=== PATIENT | female | born 1985 | race Caucasian/White ===

== ENCOUNTER 2016-06-23 20:41 | Emergency (ER) | payer OTHER ==
[~2016-06-23] VITALS: Ht 154.9 cm; Wt 70.4 kg
[2016-06-23 21:27] VITALS: Ht 154.9 cm; Wt 70.4 kg
[2016-06-24] MEDS ORDERED: ONDANSETRON (ODT) 4 MG TAB ODT STA (00:23)
[2016-06-24] MEDS ORDERED: FAMOTIDINE 20 MG TAB PO ONE (00:30)
[2016-06-24] MEDS ORDERED: HYDROCODONE/APAP (5/325) TAB PO ONE (00:30)
--- NOTE | 2016-06-24 00:35 | ERD ---
ER Documentation Chief Complaint Date/Time DATE: 06/24/16 TIME: 00:33 Chief Complaint C/O MID AP RADIATING TO RIGHT QUADRANT X1 DAY +VOMITING HPI This a 30-year-old female who presents to the emergency department today complaining of abdominal pain for the past day. Patient states the pain is worse with food. States she vomited one time. Denies any fevers or chills, dysuria. ROS All systems reviewed and are negative except as per history of present illness. Medications Home Meds Active Scripts Famotidine* (Pepcid*) 20 Mg Tablet, 20 MG PO BID for 10 Days, TAB Prov:RICARDO MICHELLE PA-C 06/24/16 Hydrocodone/Acetaminophen ([place] 5-325 Tablet) 1 Each Tablet, 1 TAB PO Q6H Y for PAIN, #12 TAB Prov:RICARDO MICHELLE PA-C 06/24/16 Ondansetron Hcl* (Zofran*) 4 Mg Tablet, 4 MG PO Q6H for NAUSEA AND/OR VOMITING, #30 TAB Prov:RICARDO MICHELLE PA-C 06/24/16 Allergies Allergies: Coded Allergies: No Known Allergy (Unverified , 06/23/16) PMhx/Soc Medical and Surgical Hx: pt denies Medical Hx, pt denies Surgical Hx Hx Alcohol Use: No Hx Substance Use: No Hx Tobacco Use: No Smoking Status: Never smoker Physical Exam Vitals Vital Signs Date Time Temp Pulse Resp B/P Pulse Ox O2 Delivery O2 Flow Rate FiO2 06/23/16 21:27 98.2 76 20 123/80 100 Physical Exam Const: No acute distress Head: Atraumatic Eyes: Normal Conjunctiva ENT: Normal External Ears, Nose and Mouth. Neck: Full range of motion..~ No meningismus. Resp: Clear to auscultation bilaterally Cardio: Regular rate and rhythm, no murmurs Abd: Soft, epigastric and right upper quadrant tenderness non distended. Normal bowel sounds no right lower quadrant pain. No tenderness of Skin: No petechiae or rashes Back: No midline or flank tenderness Ext: No cyanosis, or edema Neur: Awake and alert Psych: Normal Mood and Affect Result Diagram: 06/24/16 0110 06/24/16 0110 Results 24 hrs Laboratory Tests Test 06/24/16 00:38 06/24/16 01:10 Urine Color LT. YELLOW Urine Clarity CLEAR Urine pH 6.0 Urine Specific [place] 1.020 Urine Ketones NEGATIVE Urine Nitrite NEGATIVE Urine Bilirubin NEGATIVE Urine Urobilinogen 0.2 E.U./dL Urine Leukocyte Esterase TRACE Urine Microscopic RBC 2-5/HPF Urine Microscopic WBC 5-10/HPF Urine Squamous Epithelial Cells FEW Urine Bacteria OCCASIONAL Urine Hemoglobin 1+ Urine Glucose NEGATIVE% Urine Total Protein NEGATIVE White Blood Count 8.110^3/ul Red Blood Count 4.5510^6/ul Hemoglobin 12.5g/dl Hematocrit 38.9% Mean Corpuscular Volume 85.5fl Mean Corpuscular Hemoglobin 27.5pg Mean Corpuscular Hemoglobin Concent 32.1g/dl Red Cell Distribution Width 13.2% Platelet Count 66307^3/UL Mean Platelet Volume 10.3fl Neutrophils % 57.7% Lymphocytes % 33.5% Monocytes % 6.5% Eosinophils % 1.6% Basophils % 0.5% Nucleated Red Blood Cells % 0.0/100WBC Neutrophils # 4.610^3/ul Lymphocytes # 2.710^3/ul Monocytes # 0.510^3/ul Eosinophils # 0.110^3/ul Basophils # 0.010^3/ul Nucleated Red Blood Cells # 0.010^3/ul Sodium Level 137mmol/L Potassium Level 4.3mmol/L Chloride Level 103mmol/L Carbon Dioxide Level 27mmol/L Anion Gap 11 Blood Urea Nitrogen 9mg/dl Creatinine 0.64mg/dl Glucose Level 93mg/dl Calcium Level 9.6mg/dl Total Bilirubin 0.3mg/dl Direct Bilirubin 0.00mg/dl Indirect Bilirubin 0.3mg/dl Aspartate Amino Transf (AST/SGOT) 31IU/L Alanine Aminotransferase (ALT/SGPT) 49IU/L Alkaline Phosphatase 106IU/L Total Protein 8.0g/dl Albumin 4.5g/dl Globulin 3.50g/dl Albumin/Globulin Ratio 1.28 Lipase 88U/L Current Medications Medications (Trade) Dose Ordered Sig/Micah Route PRN Reason Start Time Stop Time Status Last Admin Dose Admin Acetaminophen/ Hydrocodone Bitart ([place] (5/325)) 1 tab ONCE ONCE PO 06/24/16 00:30 06/24/16 00:31 DC 06/24/16 00:59 Famotidine (Pepcid) 20 mg ONCE ONCE PO 06/24/16 00:30 06/24/16 00:31 DC 06/24/16 00:58 Ondansetron HCl (Zofran Odt) 4 mg ONCE STAT ODT 06/24/16 00:23 06/24/16 00:25 DC 06/24/16 00:58 DIAGNOSTIC IMAGING REPORT Patient: CONNIE STEVENS : 1985 Age: 30 Sex: F MR #: [id number] DOS: 06/24/16 0023 Ordering MD: RICARDO MICHELLE PA-C Location: [facility] Room/Bed: PROCEDURE: Right upper quadrant ultrasound. CLINICAL INDICATION: Abdominal pain. TECHNIQUE: Multiple real-time longitudinal and transverse images of the right upper quadrant of the abdomen were acquired utilizing a curved array transducer. Images were reviewed on a high-resolution PACS workstation. COMPARISON: None. FINDINGS: The pancreas is obscured by bowel gas. The liver is normal in echogenicity. The liver measures 17.2 cm in length. No hepatic lesion or intrahepatic biliary ductal dilatation is seen. The portal vein is patent with hepatopetal flow. Multiple gallstones are seen within the gallbladder lumen. The gallbladder wall is not thickened. There is no pericholecystic fluid. The common bile duct measures 4 mm in diameter, not dilated. The right kidney measures 11.0 cm in length. Renal echogenicity is normal. There is no hydronephrosis, urinary calculus, or renal mass. The visualized portions of the aorta and IVC are unremarkable. IMPRESSION: 1. Cholelithiasis without evidence of cholecystitis. 2. Nonvisualization of the pancreas. RPTAT: HTAR .Aleksey Vera MD, Date Time Electronically viewed and signed by .Aleksey Vera MD, on 06/24/2016 01:51 .R/ CC: RICARDO MICHELLE PA-C Procedures/[facility] This a 30-year-old female who presents the emergency department today complaining of abdominal pain for the past day. On physical exam patient has epigastric and right upper quadrant tenderness. Patient had indicated the pain was worse with food. I did obtain laboratory work as well as a UA and right upper quadrant ultrasound Laboratory work shows no elevated white blood cell count. She is not anemic. Platelets are within normal limits. Electrolytes are within normal limits. Glucose within normal limits. Liver function is within normal limits. Lipase is normal limits per UA shows trace leukocyte esterase. Patient denies any dysuria. Urine test is negative. Right upper quadrant ultrasound shows cholelithiasis without evidence of cholecystitis. There are multiple gallstones seen within the gallbladder lumen. The gallbladder wall is not thickening. There is no pericholecystic fluid. The common bile duct is not dilated. Patient's abdominal pain at this time is consistent with biliary colic and gallstones. Low suspicion for acute surgical abdomen or acute pancreatitis. Patient was given [place], Zofran and Pepcid here in the emergency department and pain improved. She was given a prescription for [place], Pepcid and Zofran for home At this time the patient is stable for discharge and outpatient management. Patient should follow up with their PCP in the next 1-2 days. They may return to the emergency department sooner for any persistent or worsening of symptoms. Patient understood and agreed with the plan. Departure Diagnosis: Primary Impression: Gallstones Condition: RICARDO Richard PA-C June 24, 2016 00:35
[2016-06-24 01:08] LABS: ADD UMIC YES; URINE BILIRUBIN (Dip) NEGATIVE (NEGATIVE); URINE BLOOD (Dip) 1+ (NEGATIVE); URINE COLOR LT. YELLOW (YELLOW); URINE GLUCOSE (Dip) NEGATIVE (NEGATIVE); URINE KETONES (Dip) NEGATIVE (NEGATIVE); URINE LEUKOCYTE ESTERASE (Dip) TRACE (NEGATIVE); URINE NITRITE (Dip) NEGATIVE (NEGATIVE); URINE TOTAL PROTEIN (Dip) NEGATIVE (NEGATIVE); URINE UROBILINOGEN (Dip) 0.2 E.U./dL (0.1-1.0)
[2016-06-24 01:20] LABS: BACTERIA,URINE OCCASIONAL; SQUAMOUS EPITHELIAL CELL,UR FEW
[2016-06-24 01:49] LABS: ADD SCAN DIFF NO
[2016-06-24 01:51] LABS: BASOPHILS % 0.5 % (0.0-2.0); EOSINOPHILS # 0.1 10^3/ul (0.0-0.5); EOSINOPHILS % 1.6 % (0.0-7.0); HEMATOCRIT 38.9 % (37.0-47.0); HEMOGLOBIN 12.5 g/dl (12.0-16.0); LYMPHOCYTES # 2.7 10^3/ul (0.8-2.9); LYMPHOCYTES % 33.5 % (15.0-51.0); MEAN CORPUSCULAR HEMOGLOBIN 27.5 pg (29.0-33.0); MEAN CORPUSCULAR HGB CONC 32.1 g/dl (32.0-37.0); MEAN CORPUSCULAR VOLUME 85.5 fl (82.0-101.0); MEAN PLATELET VOLUME 10.3 fl (7.4-10.4); MONOCYTE # 0.5 10^3/ul (0.3-0.9); MONOCYTES % 6.5 % (0.0-11.0); NEUTROPHIL # 4.6 10^3/ul (1.6-7.5); NEUTROPHILS % 57.7 % (39.0-77.0); PLATELET COUNT 319 10^3/UL (140-415); RED BLOOD COUNT 4.55 10^6/ul (4.20-5.40); RED CELL DISTRIBUTION WIDTH 13.2 % (11.5-14.5); WHITE BLOOD COUNT 8.1 10^3/ul (4.8-10.8)
--- NOTE | 2016-06-24 01:51 | RADRPT ---
PROCEDURE: Right upper quadrant ultrasound. CLINICAL INDICATION: Abdominal pain. TECHNIQUE: Multiple real-time longitudinal and transverse images of the right upper quadrant of th e abdomen were acquired utilizing a curved array transducer. Images were reviewed on a high-resoluti on PACS workstation. COMPARISON: None. FINDINGS: The pancreas is obscured by bowel gas. The liver is normal in echogenicity. The liver measures 17.2 cm in length. No hepatic lesion or in trahepatic biliary ductal dilatation is seen. The portal vein is patent with hepatopetal flow. Multiple gallstones are seen within the gallbladder lumen. The gallbladder wall is not thickened. There is no pericholecystic fluid. The common bile duct measures 4 mm in diameter, not dilated. The right kidney measures 11.0 cm in length. Renal echogenicity is normal. There is no hydronephro sis, urinary calculus, or renal mass. The visualized portions of the aorta and IVC are unremarkable. IMPRESSION: 1. Cholelithiasis without evidence of cholecystitis. 2. Nonvisualization of the pancreas. RPTAT: HTAR .Aleksey Vera MD, Date Time Electronically viewed and signed by .Aleksey Vera MD, on 06/24/2016 01:51 .R/
[2016-06-24 02:10] LABS: ALBUMIN 4.5 g/dl (3.3-4.9); ALBUMIN/GLOBULIN RATIO 1.28; BILIRUBIN,INDIRECT 0.3 mg/dl (0-1.1); BILIRUBIN,TOTAL 0.3 mg/dl (0.2-1.3); CALCIUM 9.6 mg/dl (8.4-10.2); CREATININE 0.64 mg/dl (0.44-1.00); POTASSIUM 4.3 mmol/L (3.5-5.1)
[2016-06-24] MEDS ORDERED: HYDR-906 PO (02:19)
[2016-06-24] MEDS ORDERED: ONDA4TAB8 PO (02:19)
[2016-06-24] MEDS ORDERED: FAMO-18 PO (02:19)
[2016-06-24 02:36] VITALS: BP 113/74; PULSE 62; RESP 16
== END 2016-06-24 02:39 | disposition home or self-care (01) ==
LOC: FTE 20:41
DX: K80.20 Calculus of gallbladder without cholecystitis without obstruction (principal); R11.10 Vomiting, unspecified
CPT/HCPCS: 76705; 80053; 81001; 83690; 85025; Z7610; 36415; 81003

== ENCOUNTER 2016-08-27 19:58 | Inpatient (IN) | payer OTHER ==
[~2016-08-27] VITALS: Ht 154.9 cm; Wt 69.0 kg
[~2016-08-27 19:58] MED LIST: FAMO-96 PO; HYDR-906 PO; ONDA4TAB8 PO
[2016-08-27] MEDS ORDERED: ONDANSETRON 4 MG INJ IV STA (20:51)
[2016-08-27] MEDS ORDERED: KETOROLAC 30 MG INJ IV STA (20:51)
[2016-08-27] MEDS ORDERED: SOD CHLORIDE 0.9% 500 ML IV STA (20:51)
[2016-08-27] MEDS ORDERED: ACETAMINOPHEN 325 MG TAB PO ONE (21:00)
[2016-08-27 21:40] LABS: ADD SCAN DIFF NO
[2016-08-27 21:44] LABS: BASOPHILS % 0.2 % (0.0-2.0); HEMATOCRIT 39.8 % (37.0-47.0); HEMOGLOBIN 13.2 g/dl (12.0-16.0); LYMPHOCYTES # 1.2 10^3/ul (0.8-2.9); MEAN CORPUSCULAR HEMOGLOBIN 27.7 pg (29.0-33.0); MEAN CORPUSCULAR HGB CONC 33.2 g/dl (32.0-37.0); MEAN CORPUSCULAR VOLUME 83.4 fl (82.0-101.0); MEAN PLATELET VOLUME 10.1 fl (7.4-10.4); MONOCYTE # 0.7 10^3/ul (0.3-0.9); MONOCYTES % 5.2 % (0.0-11.0); NEUTROPHIL # 10.5 10^3/ul (1.6-7.5); NEUTROPHILS % 84.3 % (39.0-77.0); PLATELET COUNT 336 10^3/UL (140-415); RED BLOOD COUNT 4.77 10^6/ul (4.20-5.40); RED CELL DISTRIBUTION WIDTH 13.2 % (11.5-14.5); WHITE BLOOD COUNT 12.4 10^3/ul (4.8-10.8)
[2016-08-27 21:53] LABS: ADD UMIC YES; UR ASCORBIC ACID NEGATIVE (NEGATIVE); UR BACTERIA FEW /HPF (NONE SEEN); UR BILIRUBIN (Dip) NEGATIVE (NEGATIVE); UR BLOOD (Dip) 2+ mg/dL (NEGATIVE); UR CLARITY SLIGHTLY CLOUDY (CLEAR); UR COLOR YELLOW (YELLOW); UR GLUCOSE (Dip) NEGATIVE (NEGATIVE); UR KETONES (Dip) NEGATIVE (NEGATIVE); UR LEUKOCYTE ESTERASE (Dip) TRACE Leu/ul (NEGATIVE); UR MUCUS MODERATE /HPF (NONE SEEN); UR NITRITE (Dip) NEGATIVE (NEGATIVE); UR RBC 10 /HPF (0-5); UR SPECIFIC GRAVITY (Dip) 1.024 (1.003-1.030); UR SQUAMOUS EPITHELIAL CELL MODERATE /HPF (FEW); UR TOTAL PROTEIN (Dip) 1+ mg/dl (NEGATIVE); UR UROBILINOGEN (Dip) NEGATIVE (NEGATIVE)
[2016-08-27 22:01] LABS: INR 0.97; PROTIME 12.9 Sec (12.2-14.2)
[2016-08-27 22:02] LABS: PARTIAL THROMBOPLASTIN TIME 32.1 Sec (25.0-35.0)
[2016-08-27 22:03] LABS: ALBUMIN/GLOBULIN RATIO 1.42; BILIRUBIN,INDIRECT 0.4 mg/dl (0-1.1); BILIRUBIN,TOTAL 0.4 mg/dl (0.2-1.3); CALCIUM 9.4 mg/dl (8.4-10.2); CREATININE 0.65 mg/dl (0.44-1.00); TOTAL PROTEIN 8.5 g/dl (6.1-8.1)
--- NOTE | 2016-08-27 22:25 | RADRPT ---
PROCEDURE: US Abdomen (right upper quadrant). CLINICAL INDICATION: Right upper quadrant abdomen pain. TECHNIQUE: Multiple real-time longitudinal and transverse images of the right upper quadrant of th e abdomen were acquired utilizing a curved array transducer. Images were reviewed on a high-resoluti on PACS workstation. COMPARISON: None FINDINGS: The liver is normal in size and normal in echogenicity. There is no focal hepatic lesion. Color Doppler and pulsed Doppler sonography demonstrate normal a ntegrade flow in the portal vein. Multiple gallstones are present in the gallbladder. There is gallbladder wall thickening measuring 5.6 ml. Sludge is present in the gallbladder. There is mild fluid around the gallbladder. The bile ducts are dilated with the common bile duct measuring 11.5 mm in diameter. Multiple stones are present in the dilated common bile duct. The visualized portions of the pancreas are unremarkable with obscuration of the tail of the pancrea s. No free fluid is present. The right kidney measures 10.2 cm. There is normal echogenicity of the right kidney. There is no perinephric fluid collection. No hydronephrosis, mass, or calculus is seen. IMPRESSION: 1. Gallstones and sludge in the gallbladder with gallbladder wall thickening and mild surrounding f luid consistent with cholecystitis. 2. Dilated common bile duct measuring 11.5 mm containing multiple stones. 3. Otherwise normal right upper quadrant abdomen ultrasound. RPTAT: QQ .Elie Lara MD, Date Time Electronically viewed and signed by .Elie Lara MD, MD on 08/27/2016 22:25 .R/
[2016-08-27] MEDS ORDERED: SODIUM CHLORIDE 0.9% 1L BAG IV* STA ×2 (23:12)
--- NOTE | 2016-08-27 23:12 | ERA ---
ER Documentation Chief Complaint Date/Time DATE: 08/27/16 TIME: 23:09 Chief Complaint RUQ pain x 1 day Hx of gall stones HPI 30-year-old female with a history of gallstones presenting with right upper quadrant pain since yesterday. The pain is constant, aching, nonradiating, 10 out of 10. Pain is worse with eating, nothing seems to make it better. She has had associated nausea but no vomiting. She has also had associated low- grade fevers. ROS All systems reviewed and are negative except as per history of present illness. Medications Home Meds Reported Medications Acetaminophen* (Acetaminophen*) 500 MG Extra Strength Tablet, 500 MG PO Q4H Y for PAIN AND OR ELEVATED TEMP, TAB 08/27/16 Discontinued Scripts Famotidine* (Pepcid*) 20 Mg Tablet, 20 MG PO BID for 10 Days, TAB Prov:RICARDO MICHELLE PA-C 06/24/16 Hydrocodone/Acetaminophen ([place] 5-325 Tablet) 1 Each Tablet, 1 TAB PO Q6H Y for PAIN, #12 TAB Prov:RICARDO MICHELLE PA-C 06/24/16 Ondansetron Hcl* (Zofran*) 4 Mg Tablet, 4 MG PO Q6H for NAUSEA AND/OR VOMITING, #30 TAB Prov:RICARDO MICHELLE PA-C 06/24/16 Allergies Allergies: Coded Allergies: No Known Allergy (Unverified , 08/27/16) PMhx/Soc Anesthesia Reaction: No Hx Neurological Disorder: No Hx Respiratory Disorders: No Hx Cardiac Disorders: No Hx Psychiatric Problems: No Hx Miscellaneous Medical Probl: Yes (gall stones) Hx Alcohol Use: No Hx Substance Use: No Hx Tobacco Use: No FmHx Family History: No coronary disease Physical Exam Vitals Vital Signs Date Time Temp Pulse Resp B/P Pulse Ox O2 Delivery O2 Flow Rate FiO2 08/27/16 20:24 100.7 108 18 131/78 98 Physical Exam Const: Well-nourished, nontoxic, no significant distress on exam Head: Atraumatic Eyes: Normal Conjunctiva ENT: Normal External Ears, Nose and Mouth. Neck: Full range of motion..~ No meningismus. Resp: Clear to auscultation bilaterally Cardio: Tachycardic with regular rhythm, no murmurs Abd: Soft, tenderness palpation right upper quadrant with positive Rae sign, non distended. Normal bowel sounds Skin: No petechiae or rashes Back: No midline or flank tenderness Ext: No cyanosis, or edema Neur: Awake and alert Psych: Normal Mood and Affect Result Diagram: 08/28/162 08/28/16441 Results 24 hrs Laboratory Tests Test 08/27/16 21:04 08/27/16 21:10 08/27/16 23:10 White Blood Count 12.410^3/ul Red Blood Count 4.7710^6/ul Hemoglobin 13.2g/dl Hematocrit 39.8% Mean Corpuscular Volume 83.4fl Mean Corpuscular Hemoglobin 27.7pg Mean Corpuscular Hemoglobin Concent 33.2g/dl Red Cell Distribution Width 13.2% Platelet Count 05026^3/UL Mean Platelet Volume 10.1fl Neutrophils % 84.3% Lymphocytes % 10.0% Monocytes % 5.2% Eosinophils % 0.0% Basophils % 0.2% Nucleated Red Blood Cells % 0.0/100WBC Neutrophils # 10.510^3/ul Lymphocytes # 1.210^3/ul Monocytes # 0.710^3/ul Eosinophils # 0.010^3/ul Basophils # 0.010^3/ul Nucleated Red Blood Cells # 0.010^3/ul Prothrombin Time 12.9Sec Prothrombin Time Ratio 1.0 INR International Normalized Ratio 0.97 Activated Partial Thromboplast Time 32.1Sec Sodium Level 137mmol/L Potassium Level 4.0mmol/L Chloride Level 102mmol/L Carbon Dioxide Level 25mmol/L Anion Gap 14 Blood Urea Nitrogen 10mg/dl Creatinine 0.65mg/dl Glucose Level 118mg/dl Calcium Level 9.4mg/dl Total Bilirubin 0.4mg/dl Direct Bilirubin 0.00mg/dl Indirect Bilirubin 0.4mg/dl Aspartate Amino Transf (AST/SGOT) 98IU/L Alanine Aminotransferase (ALT/SGPT) 89IU/L Alkaline Phosphatase 116IU/L Total Protein 8.5g/dl Albumin 5.0g/dl Globulin 3.50g/dl Albumin/Globulin Ratio 1.42 Lipase 38U/L Urine Color YELLOW Urine Clarity SLIGHTLY CLOUDY Urine pH 5.0 Urine Specific [place] 1.024 Urine Ketones NEGATIVEmg/dL Urine Nitrite NEGATIVEmg/dL Urine Bilirubin NEGATIVEmg/dL Urine Urobilinogen NEGATIVEmg/dL Urine Leukocyte Esterase TRACELeu/ul Urine Microscopic RBC 10/HPF Urine Microscopic WBC 4/HPF Urine Squamous Epithelial Cells MODERATE/HPF Urine Bacteria FEW/HPF Urine Mucus MODERATE/HPF Urine Hemoglobin 2+mg/dL Urine Glucose NEGATIVEmg/dL Urine Total Protein 1+mg/dl Lactic Acid Level 0.8mmol/L Current Medications Medications (Trade) Dose Ordered Sig/Micah Route PRN Reason Start Time Stop Time Status Last Admin Dose Admin Sodium Chloride (NS) 500 ml @ 500 mls/hr Q1H STAT IV 08/27/16 20:51 08/27/16 21:50 DC 08/27/16 21:39 Ondansetron HCl (Zofran Inj) 4 mg ONCE STAT IV 08/27/16 20:51 08/27/16 20:54 DC 08/27/16 21:38 Ketorolac Tromethamine (Toradol) 30 mg ONCE STAT IV 08/27/16 20:51 08/27/16 20:55 DC 08/27/16 21:39 Acetaminophen (Tylenol Tab) 650 mg ONCE ONCE PO 08/27/16 21:00 08/27/16 21:01 DC 08/27/16 21:38 Sodium Chloride 1140 ml 1,140 ml BOLUS OVER 1 HOURS STAT IV* 08/27/16 23:12 08/27/16 23:14 DC Piperacillin Sod/ Tazobactam Sod (Zosyn 3.375gm/ 100 ml (Pmx)) 100 ml @ 200 mls/hr ONCE ONCE IVPB 08/27/16 23:30 08/27/16 23:59 DC 08/27/16 23:53 Sodium Chloride (NS) 1,640 ml BOLUS OVER 2 HOURS STAT IV* 08/27/16 23:12 08/27/16 23:15 DC 08/27/16 23:54 Procedures/MDM Labs: CBC: leukocytosis CMP: No evidence of electrolyte abnormality, renal failure, hypoglycemia, liver failure, or biliary obstruction. mild transaminitis Lipase: no evidence of pancreatitis Lactate within normal limits UA: no evidence of infection Ultrasound abdomen: IMPRESSION: 1. Gallstones and sludge in the gallbladder with gallbladder wall thickening and mild surrounding fluid consistent with cholecystitis. 2. Dilated common bile duct measuring 11.5 mm containing multiple stones. 3. Otherwise normal right upper quadrant abdomen ultrasound. MDM Patient's presentation is consisten with acute cholecysitis. Sepsis workup was done given her fever and leukocytosis. LActate was normal. IV fluids and Zosyn were given. Pain was treated. ultrasound also showed evidence of CBD obstruction and dilation, however labs do not show a biliary obstructive picture. I spoke with Dr. Hoskins with GI per Dr. Yu's request. I also consulted Dr. Gutierrez. They both agreed to see the patient. Accepting Care Team: Current data and ongoing care discussed. Time: Time of admission Primary Provider: Jorge A Consulting: Brenda (Surgery)Gato (GI) Outstanding Data: none Departure Diagnosis: Primary Impression: Choledocholithiasis with acute cholecystitis Condition: Serious ANTONIO BARRERA MD Aug 27, 2016 23:11
[2016-08-27] MEDS ORDERED: PIPER-TAZO 3.375 GM IV (PMX) 100 ML IVPB ONE (23:30)
[2016-08-27] MEDS ORDERED: ACET-141 PO (23:31)
[2016-08-28] VITALS (28 sets, daily range): BP systolic 99–117; BP diastolic 50–68; PULSE 62–78; RESP 13–18; TEMP 98.4; Ht 154.9 cm; Wt 69.0 kg
[2016-08-28] MEDS ORDERED: ACETAMINOPHEN 325 MG TAB PO PRN
[2016-08-28] MEDS: morphine 2 MG INJ IV PRN ×3 (02:59→11:59)
[2016-08-28] MEDS ORDERED: DEXTROSE 5%-0.45% NACL 1,000 ML IV SCH (03:00)
[2016-08-28] MEDS ORDERED: ONDANSETRON 4 MG INJ IV PRN ×3 (03:00→14:30)
[2016-08-28] MEDS: PIPER-TAZO 3.375 GM IV (PMX) 100 ML IVPB SCH ×4 (08:02→23:59)
[2016-08-28 08:23] LABS: ADD SCAN DIFF NO
[2016-08-28 08:48] LABS: ALBUMIN 4.3 g/dl (3.3-4.9); BILIRUBIN,INDIRECT 0.3 mg/dl (0-1.1); BILIRUBIN,TOTAL 0.3 mg/dl (0.2-1.3); CALCIUM 9.1 mg/dl (8.4-10.2); CREATININE 0.55 mg/dl (0.44-1.00); POTASSIUM 3.3 mmol/L (3.5-5.1); TOTAL PROTEIN 7.1 g/dl (6.1-8.1)
[2016-08-28 10:44] LABS: BASOPHILS % 0.3 % (0.0-2.0); EOSINOPHILS % 0.3 % (0.0-7.0); HEMATOCRIT 30.6 % (37.0-47.0); HEMOGLOBIN 10.3 g/dl (12.0-16.0); MEAN CORPUSCULAR HEMOGLOBIN 28.6 pg (29.0-33.0); MEAN CORPUSCULAR HGB CONC 33.7 g/dl (32.0-37.0); MEAN PLATELET VOLUME 10.7 fl (7.4-10.4); MONOCYTE # 0.8 10^3/ul (0.3-0.9); NEUTROPHIL # 5.8 10^3/ul (1.6-7.5); NEUTROPHILS % 67.2 % (39.0-77.0); PLATELET COUNT 249 10^3/UL (140-415); RED CELL DISTRIBUTION WIDTH 13.4 % (11.5-14.5); WHITE BLOOD COUNT 8.6 10^3/ul (4.8-10.8)
[2016-08-28] MEDS ORDERED: POTASSIUM CHLORIDE 30 MEQ in SOD CHLORIDE 0.9% 150 ML IVPB SCH (12:30)
[2016-08-28] MEDS ORDERED: INDOMETHACIN 50 MG SUPP PR ONE (12:30)
--- NOTE | 2016-08-28 12:46 | QN ---
Documentation Comment H&P dict a/p 1. gall stone dx, plan ercp then lap FREDERICK Rodas MD Aug 28, 2016 12:45
--- NOTE | 2016-08-28 13:49 | CONS ---
Date/Time of Note Date/Time of Note DATE: 08/28/16 TIME: 13:40 Assessment/Plan Assessment/Plan Chief Complaint/Hosp Course abd pain abn lfts cbd stones a]abd pain abn lfts prob sec to cholodocholithiasis plan discussed with pt she agreed Problems: Consultation Date/Type/Reason Admit Date/Time Aug 27, 2016 at 23:49 Reason for Consultation h/ ab dpain on off for 2 yrs worse yesterday with nausea U S showed cbd stones and gallstones pain in epig region no other medical problems Social History Smoking Status: Never smoker Exam/Review of Systems Vital Signs Vitals Vital Signs Date Time Temp Pulse Resp B/P Pulse Ox O2 Delivery O2 Flow Rate FiO2 08/28/16 08:53 99.0 83 18 106/57 97 08/28/16 00:09 Room Air Intake and Output 08/27/16 08/27/16 08/28/16 15:00 23:00 07:00 Intake Total 160 ml Balance 160 ml Exam oe pt alerrt vs stable heartr nsr lungs clear abd neg hydrogen cell tender neg Results Result Diagram: 08/28/16 0442 08/28/16 0442 Results 24 hrs Laboratory Tests Test 08/27/16 21:04 08/27/16 21:10 08/27/16 23:10 08/28/16 02:20 White Blood Count 12.4 #H Red Blood Count 4.77 Hemoglobin 13.2 Hematocrit 39.8 Mean Corpuscular Volume 83.4 Mean Corpuscular Hemoglobin 27.7 L Mean Corpuscular Hemoglobin Concent 33.2 Red Cell Distribution Width 13.2 Platelet Count 336 Mean Platelet Volume 10.1 Neutrophils % 84.3 H Lymphocytes % 10.0 L Monocytes % 5.2 Eosinophils % 0.0 Basophils % 0.2 Nucleated Red Blood Cells % 0.0 Neutrophils # 10.5 H Lymphocytes # 1.2 Monocytes # 0.7 Eosinophils # 0.0 Basophils # 0.0 Nucleated Red Blood Cells # 0.0 Prothrombin Time 12.9 Prothrombin Time Ratio 1.0 INR International Normalized Ratio 0.97 Activated Partial Thromboplast Time 32.1 Sodium Level 137 Potassium Level 4.0 Chloride Level 102 Carbon Dioxide Level 25 Anion Gap 14 Blood Urea Nitrogen 10 Creatinine 0.65 Glucose Level 118 Calcium Level 9.4 Total Bilirubin 0.4 Direct Bilirubin 0.00 Indirect Bilirubin 0.4 Aspartate Amino Transf (AST/SGOT) 98 H Alanine Aminotransferase (ALT/SGPT) 89 H Alkaline Phosphatase 116 Total Protein 8.5 H Albumin 5.0 H Globulin 3.50 H Albumin/Globulin Ratio 1.42 Lipase 38 Urine Color YELLOW Urine Clarity SLIGHTLY CLOUDY A Urine pH 5.0 Urine Specific [place] 1.024 Urine Ketones NEGATIVE Urine Nitrite NEGATIVE Urine Bilirubin NEGATIVE Urine Urobilinogen NEGATIVE Urine Leukocyte Esterase TRACE A Urine Microscopic RBC 10 H Urine Microscopic WBC 4 Urine Squamous Epithelial Cells MODERATE Urine Bacteria FEW A Urine Mucus MODERATE Urine Hemoglobin 2+ H Urine Glucose NEGATIVE Urine Total Protein 1+ H Lactic Acid Level 0.8 1.0 Test 08/28/16 04:42 White Blood Count 8.6 # Red Blood Count 3.60 #L Hemoglobin 10.3 #L Hematocrit 30.6 #L Mean Corpuscular Volume 85.0 Mean Corpuscular Hemoglobin 28.6 L Mean Corpuscular Hemoglobin Concent 33.7 Red Cell Distribution Width 13.4 Platelet Count 249 # Mean Platelet Volume 10.7 H Neutrophils % 67.2 Lymphocytes % 23.0 Monocytes % 9.0 Eosinophils % 0.3 Basophils % 0.3 Nucleated Red Blood Cells % 0.0 Neutrophils # 5.8 Lymphocytes # 2.0 Monocytes # 0.8 Eosinophils # 0.0 Basophils # 0.0 Nucleated Red Blood Cells # 0.0 Sodium Level 142 Potassium Level 3.3 L Chloride Level 104 Carbon Dioxide Level 21 Anion Gap 20 H Blood Urea Nitrogen 9 Creatinine 0.55 Glucose Level 107 Lactic Acid Level 1.0 Calcium Level 9.1 Total Bilirubin 0.3 Direct Bilirubin 0.00 Indirect Bilirubin 0.3 Aspartate Amino Transf (AST/SGOT) 99 H Alanine Aminotransferase (ALT/SGPT) 95 H Alkaline Phosphatase 117 Total Protein 7.1 # Albumin 4.3 Medications Medications Current Medications Morphine Sulfate (morphine) 2 mg Q4H PRN IV PAIN LEVEL 4-7 Last administered on 08/28/16 11:59; Admin Dose 2 MG; Start 08/28/16 at 03:00 Ondansetron HCl 4 mg 4 mg Q6H PRN IV NAUSEA AND/OR VOMITING Last administered on 08/28/16 02:58; Admin Dose 4 MG; Start 08/28/16 at 03:00 Dextrose/Sodium Chloride 1,000 ml @ 80 mls/hr [id number] IV Last administered on 08/28/16 02:58; Admin Dose 80 MLS/HR; Start 08/28/16 at 03:00 Piperacillin Sod/ Tazobactam Sod 100 ml @ 200 mls/hr Q6 IVPB Last administered on 08/28/16 12:01; Admin Dose 200 MLS/HR; Start 08/28/16 at 08:00 Potassium Chloride/Sodium Chloride (KCl/NS) 165 ml @ 55 mls/hr ONCE IVPB ; Start 08/28/16 at 12:30; Stop 08/28/16 at 15:29 ROSAS BRIAN MD Aug 28, 2016 13:49
[2016-08-28] MEDS ORDERED: ROCURONIUM 50 MG INJ ONE (14:21)
[2016-08-28] MEDS ORDERED: FENTAnyl 50 MCG/ML VIAL ONE ×2 (14:21→16:28)
[2016-08-28] MEDS ORDERED: LIDOCAINE 2% (SDV) 5 ML INJ ONE (14:21)
[2016-08-28] MEDS ORDERED: MIDAZOLAM 1 MG/ML 2 ML INJ ONE (14:21)
[2016-08-28] MEDS ORDERED: PROPOFOL 20 ML ONE (14:21)
[2016-08-28] MEDS ORDERED: MEPERIDINE 25 MG INJ IV PRN (14:30)
[2016-08-28] MEDS ORDERED: FENTAnyl 50 MCG/ML VIAL IV PRN (14:30)
[2016-08-28] MEDS ORDERED: DIPHENHYDRAMINE 50 MG INJ IV PRN (14:30)
[2016-08-28] MEDS ORDERED: HYDROmorphONE (0.2 MG/ML) 10ML SYG IV PRN ×2 (14:30)
[2016-08-28] MEDS ORDERED: PROCHLORPERAZINE 10 MG INJ IV PRN (14:30)
[2016-08-28] MEDS ORDERED: IOHEXOL 300MG/ML 30 ML BTL ONE (14:32)
[2016-08-28] MEDS ORDERED: DEXAMETHASONE 4 MG/ML 1 ML INJ ONE (14:59)
[2016-08-28] MEDS ORDERED: FAMOTIDINE 20 MG INJ ONE (14:59)
[2016-08-28] MEDS ORDERED: METOCLOPRAMIDE 10 MG INJ ONE (14:59)
[2016-08-28] MEDS ORDERED: ONDANSETRON 4 MG INJ ONE ×2 (14:59→16:40)
--- NOTE | 2016-08-28 15:02 | CONS ---
Date/Time of Note Date/Time of Note DATE: 08/28/16 TIME: 12:52 Assessment/Plan Assessment/Plan Additional Assessment/Plan [facility] IN[facility]IENT CONSULTATION NOTE DATE OF SERVICE: 08/28/2016 PLACE OF SERVICE: [facility], fourth floor ASSESSMENT AND PLAN: A very-pleasant and otherwise healthy 30-year-old young lady with only comorbidity of BMI 28.7, who presented to the emergency department at [facility] and was admitted on 08/28/2016 with cholelithiasis and perhaps early cholecystitis and choledocholithiasis. Patient can benefit from ERCP as well as laparoscopic cholecystectomy. I visited with the patient along with Dr. Hoskins and we held a dual consultation with the patient at the same time (no family present during our discussions with the patient). We each described our rationale behind our recommendation. I individually described the recommended procedure of laparoscopic cholecystectomy with possible open cholecystectomy in detail including the risks , benefits, and alternatives and obtain the patient's consent for the operation. Answered all questions. With above assessment, I've recommended the followin. To the operating room for above to be done in conjunction right after her ERCP doing the same general anesthesia Thank you very much for having me involved in the care of this very pleasant young lady and uncertain her wonderful family. I will continue to follow her along with you closely and will be available to answer any questions at area code [phone]. Disclaimer: Inadvertent spelling and grammatical errors are likely due to EHR/ dictation software use and do not reflect on the quality of delivered patient care. Also, please note that the electronic time recorded on this node does not necessarily reflect the actual time of the visit. Updated clinical summary: Very pleasant and otherwise healthy 30-year-old young lady with only comorbidity of BMI 28.7, who presented to the emergency department at [facility] and was admitted on 08/28/2016 with cholelithiasis and perhaps early cholecystitis and choledocholithiasis. Comorbidities: 1. BMI 28.7 2. Known cholelithiasis since 06/24/2016 (visit to the [facility] emergency department, seen on ultrasound of right upper quadrant) HISTORY OF PRESENT ILLNESS: The patient is a very pleasant and otherwise healthy 30-year-old young lady with only comorbidity of BMI 28.7, who presented to the emergency department at [facility] and was admitted on 08/28/2016 with 1 day history of right upper quadrant abdominal pain which was 10 out of 10 at its worst, without radiation, worse with eating and not alleviated with any other factors. There was associated nausea but no vomiting. There is also associated low-grade fever. Patient also had similar pains in the past and was evaluated at our emergency department in June 2016 where the recommendation was for the patient to seek advice from her primary care physician after being discharged from the emergency department. ALLERGIES: NO KNOWN DRUG ALLERGIES MEDICATIONS None on long-term basis. Patient was reportedly on antacids although the patient herself reported taking no medications on a regular basis. SOCIAL HISTORY: The patient lives with family.-Tob;-ETOH;-IVDU FAMILY HISTORY: There are no significant medical, surgical or oncologic issues in the family as reported by the patient or reflected in the chart. REVIEW OF SYSTEMS: Other than mentioned above, there were no other pertinent positives or pertinent negatives in an otherwise complete 14 point review of systems. PHYSICAL EXAMINATION GENERAL: The patient appears to be a very pleasant young lady of descent lying in bed, appearing stated age, and otherwise in no acute distress. BMI: 20.7 VITAL SIGNS: AVSS (please also see below) HEENT: Normocephalic and atraumatic. Extraocular muscles and hearing are grossly intact bilaterally and symmetrically. Sclerae are nonicteric. Oral cavity is clear; oral mucosa appear to be pink and moist. Dentition: fair. NECK: Supple. There is no lymphadenopathy or JVD. There is no submental, submandibular or supraclavicular lymphadenopathy. CHEST: Rises symmetrically with each breath; patient is breathing comfortably. There are no audible wheezes, rales or rhonchi on the gross exam. HEART: Pulse is regular and palpable on the right wrist. Capillary refill is normal. Carotid pulses are palpable bilaterally and symmetrically in the neck. EXTREMITIES: Lower extremities contain no pitting edema around the ankles bilaterally and symmetrically. ABDOMEN: Abdomen is soft, nontender and nondistended. No evidence of ascites, organomegaly, caput medusae, engorged subcutaneous veins, or other abnormalities. There are no peritoneal signs or guarding. SKIN: Appears to be pink and feels warm to touch. NEUROLOGIC: Awake, alert, and follows commands appropriately. LABORATORY DATA: See below on admission, white blood cell count 12.4, decreased down to 8.6. Platelets 249. CO2 21, creatinine 0.55, lactic acid 1.0, total bilirubin 0.3, AST 99, ALT 95, alkaline phosphatase 117. Lipase 38. INR 0.97. IMAGING: See electronic chart. Please note that I've personally reviewed all pertinent available images and I agree in general with their overall reported findings. Right upper quadrant ultrasound 08/27/2016, [facility] IMPRESSION: 1. Gallstones and sludge in the gallbladder with gallbladder wall thickening and mild surrounding fluid consistent with cholecystitis. 2. Dilated common bile duct measuring 11.5 mm containing multiple stones. 3. Otherwise normal right upper quadrant abdomen ultrasound. Consultation Date/Type/Reason Admit Date/Time Aug 27, 2016 at 23:49 Social History Smoking Status: Never smoker Exam/Review of Systems Vital Signs Vitals Vital Signs Date Time Temp Pulse Resp B/P Pulse Ox O2 Delivery O2 Flow Rate FiO2 08/28/16 08:53 99.0 83 18 106/57 97 08/28/16 00:09 Room Air Intake and Output 08/27/16 08/27/16 08/28/16 15:00 23:00 07:00 Intake Total 160 ml Balance 160 ml Results Result Diagram: 08/28/16 0442 08/28/16 0442 Results 24 hrs Laboratory Tests Test 08/27/16 21:04 08/27/16 21:10 08/27/16 23:10 08/28/16 02:20 White Blood Count 12.4 #H Red Blood Count 4.77 Hemoglobin 13.2 Hematocrit 39.8 Mean Corpuscular Volume 83.4 Mean Corpuscular Hemoglobin 27.7 L Mean Corpuscular Hemoglobin Concent 33.2 Red Cell Distribution Width 13.2 Platelet Count 336 Mean Platelet Volume 10.1 Neutrophils % 84.3 H Lymphocytes % 10.0 L Monocytes % 5.2 Eosinophils % 0.0 Basophils % 0.2 Nucleated Red Blood Cells % 0.0 Neutrophils # 10.5 H Lymphocytes # 1.2 Monocytes # 0.7 Eosinophils # 0.0 Basophils # 0.0 Nucleated Red Blood Cells # 0.0 Prothrombin Time 12.9 Prothrombin Time Ratio 1.0 INR International Normalized Ratio 0.97 Activated Partial Thromboplast Time 32.1 Sodium Level 137 Potassium Level 4.0 Chloride Level 102 Carbon Dioxide Level 25 Anion Gap 14 Blood Urea Nitrogen 10 Creatinine 0.65 Glucose Level 118 Calcium Level 9.4 Total Bilirubin 0.4 Direct Bilirubin 0.00 Indirect Bilirubin 0.4 Aspartate Amino Transf (AST/SGOT) 98 H Alanine Aminotransferase (ALT/SGPT) 89 H Alkaline Phosphatase 116 Total Protein 8.5 H Albumin 5.0 H Globulin 3.50 H Albumin/Globulin Ratio 1.42 Lipase 38 Urine Color YELLOW Urine Clarity SLIGHTLY CLOUDY A Urine pH 5.0 Urine Specific [place] 1.024 Urine Ketones NEGATIVE Urine Nitrite NEGATIVE Urine Bilirubin NEGATIVE Urine Urobilinogen NEGATIVE Urine Leukocyte Esterase TRACE A Urine Microscopic RBC 10 H Urine Microscopic WBC 4 Urine Squamous Epithelial Cells MODERATE Urine Bacteria FEW A Urine Mucus MODERATE Urine Hemoglobin 2+ H Urine Glucose NEGATIVE Urine Total Protein 1+ H Lactic Acid Level 0.8 1.0 Test 08/28/16 04:42 White Blood Count 8.6 # Red Blood Count 3.60 #L Hemoglobin 10.3 #L Hematocrit 30.6 #L Mean Corpuscular Volume 85.0 Mean Corpuscular Hemoglobin 28.6 L Mean Corpuscular Hemoglobin Concent 33.7 Red Cell Distribution Width 13.4 Platelet Count 249 # Mean Platelet Volume 10.7 H Neutrophils % 67.2 Lymphocytes % 23.0 Monocytes % 9.0 Eosinophils % 0.3 Basophils % 0.3 Nucleated Red Blood Cells % 0.0 Neutrophils # 5.8 Lymphocytes # 2.0 Monocytes # 0.8 Eosinophils # 0.0 Basophils # 0.0 Nucleated Red Blood Cells # 0.0 Sodium Level 142 Potassium Level 3.3 L Chloride Level 104 Carbon Dioxide Level 21 Anion Gap 20 H Blood Urea Nitrogen 9 Creatinine 0.55 Glucose Level 107 Lactic Acid Level 1.0 Calcium Level 9.1 Total Bilirubin 0.3 Direct Bilirubin 0.00 Indirect Bilirubin 0.3 Aspartate Amino Transf (AST/SGOT) 99 H Alanine Aminotransferase (ALT/SGPT) 95 H Alkaline Phosphatase 117 Total Protein 7.1 # Albumin 4.3 Medications Medications Current Medications Morphine Sulfate (morphine) 2 mg Q4H PRN IV PAIN LEVEL 4-7 Last administered on 08/28/16 11:59; Admin Dose 2 MG; Start 08/28/16 at 03:00 Ondansetron HCl 4 mg 4 mg Q6H PRN IV NAUSEA AND/OR VOMITING Last administered on 08/28/16 02:58; Admin Dose 4 MG; Start 08/28/16 at 03:00 Dextrose/Sodium Chloride 1,000 ml @ 80 mls/hr [id number] IV Last administered on 08/28/16 02:58; Admin Dose 80 MLS/HR; Start 08/28/16 at 03:00 Piperacillin Sod/ Tazobactam Sod 100 ml @ 200 mls/hr Q6 IVPB Last administered on 08/28/16 12:01; Admin Dose 200 MLS/HR; Start 08/28/16 at 08:00 Potassium Chloride/Sodium Chloride (KCl/NS) 165 ml @ 55 mls/hr ONCE IVPB Last administered on 08/28/16 13:58; Admin Dose 55 MLS/HR; Start 08/28/16 at 12:30; Stop 08/28/16 at 15:29 RAJWINDER FIELDS M.D. Aug 28, 2016 15:02
[2016-08-28] MEDS ORDERED: BUPIVACAINE 0.25%/EPI (SDV) 30 ML INJ ONE (15:03)
--- NOTE | 2016-08-28 15:48 | OPR ---
Date/Time of Note Date/Time of Note DATE: 08/28/16 TIME: 15:43 Operative Report Free Text/Dictation Dr. Kee dictating the operative procedure Procedure is ERCP removal of CBD stent removal of multiple CBD stone and edge of the pus from the CBD Preop diagnosis patient presenting with history of abdominal pain ultrasound showed evidence of a dilated common bile duct with the common bile duct stone Postop diagnosis previously placed CBD stent is noted but started draining out of the ampulla CBD stones were removed after sphincterotomy CBD stent was placed Details of the procedure After the informed written consent is obtained patient was intubated by anesthesiologist Dr. Knott while the patient was on prone position followed Olympus video side-viewing duodenoscope was inserted into the oropharynx and then into the esophagus Subsequently scope was advanced into the stomach and then into the duodenum. Previously placed CBD stent was noted The by using the polypectomy snare the stent was captured and it was removed through the biopsy channel of the scope Subsequently by using the cream from cannulation was performed contrast was injected multiple stones were found in the common bile duct the common bile duct was found to be dilated up to 12-13 mm in diameter This time the symptom was removed before removing the dreamtome about a 5 mm cut of the sphincter was made by using the cutting wire of the dreamtome By using the 9 x 12 stone retrieving balloon multiple large common bile duct stones were removed The end of this procedure no filling defects noted in the bile duct at this time 10 x 7 [place] type of endobiliary prosthesis was inserted into the common bile Across the ampulla into the duodenum' photographs were obtained and the procedure was terminated Plan recommend proceed with a cholecystectomy Procedure Date: Aug 28, 2016 ROSAS BRIAN MD Aug 28, 2016 15:48
[2016-08-28] MEDS ORDERED: ACETAMINOPHEN 1000MG/100ML IV 100 ML ONE (16:06)
[2016-08-28] MEDS ORDERED: GLYCOPYRROLATE 0.4 MG INJ ONE ×2 (16:27→17:35)
[2016-08-28] MEDS ORDERED: NEOSTIGMINE 3 MG/3 ML SYRINGE ONE (16:27)
--- NOTE | 2016-08-28 16:39 | RADRPT ---
PROCEDURE: Intraoperative imaging for ERCP with fluoroscopy. CLINICAL INDICATION: Right upper quadrant pain. Intraoperative. TECHNIQUE: 10 images of the right upper quadrant of the abdomen were obtained in the operating hannah m with an image intensifier. No radiologist was in attendance. 97 seconds of fluoroscopy time was used. COMPARISON: Right upper quadrant abdomen ultrasound dated 08/27/2016. FINDINGS: Images demonstrate the endoscope in position and contrast injected into the common bile duct. Commo n bile duct is dilated. Filling defects are present consistent with stones. A balloon sweep was ma de and a common bile duct stent was placed. IMPRESSION: 1. ERCP as described above. RPTAT: QQ .Elie Lara MD, Date Time Electronically viewed and signed by .Elie Lara MD, on 08/28/2016 16:38 .R/
[2016-08-28] MEDS ORDERED: BUPIVACAINE 0.25%/EPI (SDV) 30 ML INJ INJ ONE (17:28)
[2016-08-28] MEDS ORDERED: BISACODYL 10 MG SUPP PR PRN (18:00)
[2016-08-28] MEDS ORDERED: HYDROCODONE/APAP (5/325) TAB PO PRN (18:00)
[2016-08-28] MEDS ORDERED: NA PHOSPHATE/BIPHOS 133 ML ENEMA PR PRN (18:00)
[2016-08-28] MEDS ORDERED: HYDROmorphONE 1 MG/ML SYG IV PRN ×2 (18:00)
[2016-08-28] MEDS ORDERED: DOCUSATE SODIUM 100 MG CAP PO PRN (18:00)
--- NOTE | 2016-08-28 18:34 | OPR ---
Date/Time of Note Date/Time of Note DATE: 08/28/16 TIME: 18:33 Operative Report Procedure Date: Aug 28, 2016 Procedure Description [facility] IN[facility] PLACE OF SERVICE: [facility] DATE OF SURGERY: 08/28/2016 PREOPERATIVE DIAGNOSIS: 1. Acute cholecystitis 2. Choledocholithiasis, status post ERCP at [facility] 2016 with discovery of prior common bile duct stent of unknown age 3. 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 BMI 28.7 5. Known cholelithiasis since 06/24/2016 (visit to the [facility] emergency department, seen on ultrasound of right upper quadrant) POSTOPERATIVE DIAGNOSIS: 1. Acute on chronic cholecystitis with gallbladder hydrops 2. Choledocholithiasis, status post ERCP at [facility] 2016 with discovery of prior common bile duct stent of unknown age 3. 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 BMI 28.7 5. Known cholelithiasis since 06/24/2016 (visit to the [facility] emergency department, seen on ultrasound of right upper quadrant) OPERATION: 1. Laparoscopic cholecystectomy SURGEON: Rajwinder Gutierrez M.D. PAIRER SUBSTANDARD: None ANESTHESIA: General endotracheal tube anesthesia ANESTHESIOLOGIST: Lindsay Chavis M.D. BRIEF SUMMARY: An otherwise uncomplicated but somewhat difficult laparoscopic cholecystectomy was performed with findings of acute on chronic cholecystitis with gallbladder hydrops. Updated clinical summary: Very pleasant and otherwise healthy 30-year-old young lady with only comorbidity of BMI 28.7, who presented to the emergency department at [facility] and was admitted on 08/28/2016 with cholelithiasis and perhaps early cholecystitis and choledocholithiasis. Comorbidities: 1. BMI 28.7 2. Known cholelithiasis since 06/24/2016 (visit to the [facility] emergency department, seen on ultrasound of right upper quadrant) BRIEF HISTORY: The patient is a very pleasant 30-year-old young lady with only comorbidity of BMI 28.7, who presented to the emergency department at [facility] and was admitted on 08/28/2016 with cholelithiasis and perhaps early cholecystitis and choledocholithiasis. I met with the patient (no family present during my discussions with the patient) and counseled her regarding the possible options of treatment, and I strongly suggested a laparoscopic, possible open cholecystectomy. We reviewed the operation in detail as well as the risks, benefits, alternatives, and expected outcomes of this operation. After careful consideration of all the risks, benefits, and alternatives, the patient appeared to understand those risks and wished to proceed with surgery. For a detailed report of my consultation with patient, please refer to my separate consultation note. Please note that this was done in conjunction with multidisciplinary care with gastroenterology (Dr. Hoskins) and we had decided as a team to go ahead with doing ERCP to be immediately followed by laparoscopic cholecystectomy. Before the start of my part of the operation, I discussed Dr. Hoskins's ERCP findings with him. He had found an old common bile duct stent (unknown age) within the patient's common bile duct. This was removed along with several stones within the common bile duct. There was also indication of type I choledochal cyst with no obvious abnormality of intrahepatic biliary system. I did discuss with the team the risks and benefits of doing a laparoscopic cholecystectomy and after discussions with anesthesia, we decided that the operation would still be safe to do at this time. STATEMENT OF THE INFORMED CONSENT: The patient appeared to understand the risks of the operation to include, but not be limited to risk of postoperative pain and scar tissue, possible infection or bleeding requiring other interventions such as opening the wound, placement of drainage catheters, or other operative interventions; possible injury to surrounding to structures including bowel, bladder, bile duct, or blood vessels, or solid organs such as liver, kidney, or pancreas requiring other interventions or procedures; possible leakage of bile from surgical clip sites, suture lines, or worse, from common bile duct injury, causing significant increase in morbidity and mortality and requiring multiple interventions including but not limited to, placement of drainage catheters, imaging studies, as well as operative interventions; possible other source of sepsis such as urinary tract infections or pneumonias, or other sources of potentially life threatening problems such as deep venous thrombus formation causing pulmonary embolism, myocardial arrhythmias and infarctions, and even . After careful consideration of all their options, the patient and family appeared to understand and wished to proceed with surgery. DESCRIPTION OF PROCEDURE: After obtaining informed consent, the patient was brought into the operating room and was placed in a normal supine position, where successful general endotracheal tube anesthesia was performed. The patient 's abdominal skin was prepped and draped, from the nipple line down to the level of the groins, in the usual sterile fashion. Intravenous access was already in place, and appropriately chosen and dosed prophylactic intravenous antimicrobials were administered. We then called a surgical time-out where patient's identification, date of , nature of the operation, allergies, presence of intravenous antimicrobials, presence of needed equipment, and any other concerns were reviewed and agreed upon by all members of the operating room team. We then started the operation by placing a 5-mm skin incision in the right- upper quadrant, subcostal midclavicular line, and introduced a 5-mm [employer] trocar into the peritoneal space, visualizing all the layers of the abdominal wall as we entered. Note that there was no indication of any injury to underlying structures once we entered the peritoneum. We insufflated the abdominal cavity to a maximum pressure of 15 mmHg, again, confirmed lack of any injury to underlying structures prior to visualizing the rest of the abdominal cavity. We found the fundus of the gallbladder to be visible. Gallbladder appears to be distended and there was mild omental adhesions covering part of the wall of the gallbladder. There was no evidence of malignancy. No evidence of calcifications or significant issues with other significant issues with adhesions, or other abnormalities. The liver appeared to be healthy. With this information, we went a head and placed the other trocars under direct visualization, after injecting their sites with 0.25% Marcaine with epinephrine , placing a 5-mm trocar in the umbilical midline area, a 5-mm trocar in the right anterior axillary line, and a 12-mm trocar in the midline subxiphoid region. With our instruments in place, we had excellent visualization and access to the right-upper quadrant. We then we grasped the fundus of the gallbladder and pointed up towards the right-upper quadrant. There was mild omental adhesions onto the infundibulum which we took down with judicious use of cautery, as well as meticulous blunt dissection. We then evacuated the contents of the gallbladder using a laparoscopic needle on suction. Gallbladder hydrops was encountered. We were then able to grasp the infundibulum and pull it out in order to expose the critical triangle of [place]. We then placed our usual serosal cuts along the long axis of the gallbladder 1 cm away from its attachment to the liver bed up towards the fundus, and then joined these 2 lines under the infundibulum, taking care not to deliver any energy to underlying structures. Because of significant amount of inflammation in the area of triangle of [place]ot low, I decided to maximize the degree of safety of the operation by taking the gallbladder top-down which we accomplished using cautery. This was somewhat challenging due to the amount of scar tissue in the gallbladder bed. No evidence of malignancy. As expected, there was significant swelling around the triangle of [place] region. We then performed meticulous dissection to identify and circumferentially isolate both the cystic duct and cystic artery, prior to transecting them between 2 surgical Endoclips, proximally and one distally on the cystic artery, which we then transected using cold scissors. We continued our dissection and circumferentially isolated the cystic duct. This structure appeared to be slightly larger than normal, but this was expected given the number of stones that were within the common bile duct. We then used one firing of the 45 mm Endo VIANEY stapler with a vascular (white) load to transect across the cystic duct. One small area of tissue that appeared to be a branch of the cystic artery was also clipped with one 10 mm chemical research engineer clip. Because we had the gallbladder top-down, we had made sure that the transected structures were the only 2 structures going into the gallbladder. We then delivered the gallbladder out inside of an EndoCatch bag through the 12-mm trocar site without enlarging the fascia or contaminating the wound. The gallbladder was sent to Pathology for evaluation. Several stones had to be removed from the gallbladder and these were sent with the specimen. Returning to the abdominal cavity, we ensured that there was adequate hemostasis and bile-stasis prior to removal of all of or equipment, including the pneumoperitoneum, and then reapproximating the 12-mm trocar site with one [id number] 0 Vicryl suture, followed by washing the wounds with copious amounts of normal saline, and then reapproximating the skin using interrupted 4- 0 Monocryl sutures. Light dressing was then applied. At the end of the operation, both the sponge count and needle count were reportedly correct x2. The patient tolerated the procedure without any reported complications. ESTIMATED BLOOD LOSS: 30 mL BLOOD OR BLOOD PRODUCT TRANSFUSIONS: None to my knowledge. SPECIMENS: 1. Gallbladder COMPLICATIONS: None. DISPOSITION: Recovery area. Disclaimer: Inadvertent spelling and grammatical errors are likely due to EHR/ dictation software use and do not reflect on the quality of delivered patient care. RAJWINDER GUTIERREZ M.D. Aug 28, 2016 18:34
[2016-08-28] MEDS: D5W-0.45 NACL + KCL 20 MEQ 1,000 ML IV SCH (21:15)
[2016-08-29] MEDS: HYDROCODONE/APAP (5/325) TAB PO PRN ×4 (02:10→21:18)
[2016-08-29] MEDS: D5W-0.45 NACL + KCL 20 MEQ 1,000 ML IV SCH ×3 (04:43→23:54)
[2016-08-29 05:01] LABS: ADD SCAN DIFF NO
[2016-08-29 05:07] LABS: BASOPHILS % 0.1 % (0.0-2.0); HEMATOCRIT 29.4 % (37.0-47.0); HEMOGLOBIN 9.9 g/dl (12.0-16.0); LYMPHOCYTES # 0.8 10^3/ul (0.8-2.9); LYMPHOCYTES % 7.7 % (15.0-51.0); MEAN CORPUSCULAR HEMOGLOBIN 27.8 pg (29.0-33.0); MEAN CORPUSCULAR HGB CONC 33.7 g/dl (32.0-37.0); MEAN CORPUSCULAR VOLUME 82.6 fl (82.0-101.0); MEAN PLATELET VOLUME 10.4 fl (7.4-10.4); MONOCYTE # 0.5 10^3/ul (0.3-0.9); MONOCYTES % 4.7 % (0.0-11.0); NEUTROPHIL # 8.6 10^3/ul (1.6-7.5); NEUTROPHILS % 87.1 % (39.0-77.0); PLATELET COUNT 228 10^3/UL (140-415); RED BLOOD COUNT 3.56 10^6/ul (4.20-5.40); RED CELL DISTRIBUTION WIDTH 13.2 % (11.5-14.5); WHITE BLOOD COUNT 9.9 10^3/ul (4.8-10.8)
[2016-08-29 05:20] LABS: INR 1.29; PROTIME 16.2 Sec (12.2-14.2); PT RATIO 1.3
[2016-08-29 05:21] LABS: PARTIAL THROMBOPLASTIN TIME 35.5 Sec (25.0-35.0)
[2016-08-29] MEDS: PIPER-TAZO 3.375 GM IV (PMX) 100 ML IVPB SCH ×4 (05:32→23:34)
[2016-08-29 05:50] LABS: ALBUMIN 3.2 g/dl (3.3-4.9); ALBUMIN/GLOBULIN RATIO 1.39; BILIRUBIN,INDIRECT 0.2 mg/dl (0-1.1); BILIRUBIN,TOTAL 0.2 mg/dl (0.2-1.3); CALCIUM 8.6 mg/dl (8.4-10.2); CREATININE 0.55 mg/dl (0.44-1.00); MAGNESIUM 1.7 mg/dl (1.7-2.5); PHOSPHORUS 2.8 mg/dl (2.5-4.9); TOTAL PROTEIN 5.5 g/dl (6.1-8.1)
[2016-08-29] MEDS: FAMOTIDINE 20 MG INJ IV SCH (08:24)
[2016-08-29] MEDS: ENOXAPARIN 40 MG/0.4 ML SYG SC SCH (08:32)
[2016-08-29 08:59] VITALS: BP 91/60; RESP 18
--- NOTE | 2016-08-29 10:20 | PN ---
Date/Time of Note Date/Time of Note DATE: 08/29/16 TIME: 10:19 Assessment/Plan VTE Prophylaxis VTE Prophylaxis Intervention: LMWH Lines/Catheters IV Catheter Type (from Nrsg): Peripheral IV Central line still needed: No Urinary Cath still in place: No Assessment/Plan Assessment/Plan 1. POD #1 lap jesse and ercp, await tolerance of pO, cont pain and nausea control 2. elevated LFT, likely post procedural, follow 3. increase activity Subjective 24 Hr Interval Summary Free Text/Dictation some abdominal pain, some nausea, has not tolerated diet Exam/Review of Systems Vital Signs Vitals Vital Signs Date Time Temp Pulse Resp B/P Pulse Ox O2 Delivery O2 Flow Rate FiO2 08/29/16 08:59 98.7 58 18 91/60 99 08/28/16 19:42 Room Air 2.0 Intake and Output 08/28/16 08/28/16 08/29/16 15:00 23:00 07:00 Intake Total 0 ml 1000 ml 840 ml Output Total 20 ml Balance 0 ml 980 ml 840 ml Exam nad, epigastric tenderness, ctab, rrr Results Result Diagram: 08/29/16 0444 08/29/16 0444 Results 24 hrs Laboratory Tests Test 08/29/16 04:44 White Blood Count 9.9 Red Blood Count 3.56 L Hemoglobin 9.9 L Hematocrit 29.4 L Mean Corpuscular Volume 82.6 Mean Corpuscular Hemoglobin 27.8 L Mean Corpuscular Hemoglobin Concent 33.7 Red Cell Distribution Width 13.2 Platelet Count 228 Mean Platelet Volume 10.4 Neutrophils % 87.1 H Lymphocytes % 7.7 L Monocytes % 4.7 Eosinophils % 0.0 Basophils % 0.1 Nucleated Red Blood Cells % 0.0 Neutrophils # 8.6 H Lymphocytes # 0.8 Monocytes # 0.5 Eosinophils # 0.0 Basophils # 0.0 Nucleated Red Blood Cells # 0.0 Prothrombin Time 16.2 #H Prothrombin Time Ratio 1.3 INR International Normalized Ratio 1.29 Activated Partial Thromboplast Time 35.5 H Sodium Level 140 Potassium Level 4.0 Chloride Level 104 Carbon Dioxide Level 24 Anion Gap 16 Blood Urea Nitrogen 6 L Creatinine 0.55 Glucose Level 157 Lactic Acid Level 1.0 Calcium Level 8.6 Phosphorus Level 2.8 Magnesium Level 1.7 Total Bilirubin 0.2 Direct Bilirubin 0.00 Indirect Bilirubin 0.2 Aspartate Amino Transf (AST/SGOT) 144 H Alanine Aminotransferase (ALT/SGPT) 163 H Alkaline Phosphatase 141 H B-Type Natriuretic Peptide 587 H Total Protein 5.5 #L Albumin 3.2 #L Globulin 2.30 Albumin/Globulin Ratio 1.39 Medications Medications Current Medications Ondansetron HCl 4 mg 4 mg Q6H PRN IV NAUSEA AND/OR VOMITING Last administered on 08/28/16 02:58; Admin Dose 4 MG; Start 08/28/16 at 03:00 Piperacillin Sod/ Tazobactam Sod 100 ml @ 200 mls/hr Q6 IVPB Last administered on 08/29/16 05:32; Admin Dose 200 MLS/HR; Start 08/28/16 at 08:00 Potassium Chloride/Dextrose/ Sod Cl (D5-1/2ns + KCl 20 Meq) 1,000 ml @ 100 mls/ hr Q10H IV Last administered on 08/29/16 08:32; Admin Dose 100 MLS/HR; Start at 17:54 Acetaminophen/ Hydrocodone Bitart ([place] (5/325)) 1 tab Q4H PRN PO PAIN LEVEL 4 -7 Last administered on 08/28/16 21:59; Admin Dose 1 TAB; Start 08/28/16 at 18:00 Acetaminophen/ Hydrocodone Bitart ([place] (5/325)) 2 tab Q4H PRN PO PAIN LEVEL 7 -10 Last administered on 08/29/16 02:10; Admin Dose 2 TAB; Start 08/28/16 at 18: 00 Hydromorphone HCl (Dilaudid) 0.5 mg Q2H PRN IV PAIN; Start 08/28/16 at 18:00 Hydromorphone HCl (Dilaudid) 1 mg Q2H PRN IV PAIN; Start 08/28/16 at 18:00 Docusate Sodium (Colace) 100 mg BID PRN PO CONSTIPATION; Start 08/28/16 at 18:00 Bisacodyl (Dulcolax Supp) 10 mg BID PRN [place] CONSTIPATION; Start 08/28/16 at 18:00 Sodium Biphosphate/ Sodium Phosphate (Fleet Enema) 133 ml BID PRN [place] CONSTIPATION; Start 08/28/16 at 18:00 Famotidine (Pepcid Iv) 20 mg DAILY IV Last administered on 08/29/16 08:24; Admin Dose 20 MG; Start 08/29/16 at 09:00 Enoxaparin Sodium (Lovenox) 40 mg DAILY SC Last administered on 08/29/16 08:32 ; Admin Dose 40 MG; Start 08/29/16 at 09:00 FREDERICK JADE MD Aug 29, 2016 10:20
[2016-08-29 11:59] VITALS: BP 97/54; PULSE 67; RESP 16
--- NOTE | 2016-08-29 13:23 | PN ---
Date/Time of Note Date/Time of Note DATE: 08/29/16 TIME: 13:04 Assessment/Plan Lines/Catheters IV Catheter Type (from Nrsg): Peripheral IV Gonzalez in Place (from Nrsg): No Assessment/Plan Assessment/Plan [facility] Progress Note Date of Service: 08/29/16 Today's Impression & Plan: Overall doing well post op without major issues. No major wound problems. Abd appears benign. Given newly diagnosed choledochal cyst, she will need to follow up with me and have a multidisciplinary discussion regarding care, with eventual bile duct resection and hepaticojejunostomy. Discussed with patient ( no family present) and answered all questions. With above assessment, I've recommended the following for today: 1. Advance diet 2. Increase activity 3. Increase ICS 4. If pain control is adequate with above and no other medical issues, to consider d/c home with outpatient follow up with me in a few weeks Thank you again for your great care of this very pleasant patient and wonderful family. If there are any questions, please feel free to call me at [phone]. Disclaimer: Inadvertent spelling or grammatical errors are likely due to EHR/ dictation software use and do not reflect on the overall quality of patient care. Updated Clinical Summary: Very pleasant and otherwise healthy 30-year-old young lady with only comorbidity of BMI 28.7, who presented to the emergency department at [facility] and was admitted on 08/28/2016 with cholelithiasis and perhaps early cholecystitis and choledocholithiasis. S/p an otherwise uncomplicated but somewhat difficult laparoscopic cholecystectomy at [facility] on with findings of acute on chronic cholecystitis with gallbladder hydrops. Comorbidities: 1. Acute on chronic cholecystitis with gallbladder hydrops 2. Choledocholithiasis, status post ERCP at [facility] 2016 with discovery of prior common bile duct stent of unknown age 3. 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 BMI 28.7 5. Known cholelithiasis since 06/24/2016 (visit to the [facility] emergency department, seen on ultrasound of right upper quadrant) 6. S/p an otherwise uncomplicated but somewhat difficult laparoscopic cholecystectomy at [facility] on 08/28/16 with findings of acute on chronic cholecystitis with gallbladder hydrops. Subjective: No major events or complaints; no major abd pain and under control with medications; no n/v/d; no sob or cp; + flatus; - BM; minimal activity Objective: Vitals: See below Exam: GENERAL: On exam, the patient was laying in bed and appeared to be comfortable and in no acute distress. ABDOMEN: Soft, nontender and nondistended. Incision dressings are clean, dry and intact without any evidence of obvious underlying erythema, edema, discharge , or hernia. There are no peritoneal signs or guarding. SKIN: Skin appears to be pink and feels warm to touch. NEUROLOGIC: Patient is awake, alert, and follows commands appropriately. Exam/Review of Systems Vital Signs Vitals Vital Signs Date Time Temp Pulse Resp B/P Pulse Ox O2 Delivery O2 Flow Rate FiO2 08/29/16 11:59 98.5 67 16 97/54 98 Room Air 08/28/16 19:42 2.0 Intake and Output 08/28/16 08/28/16 08/29/16 15:00 23:00 07:00 Intake Total 0 ml 1000 ml 840 ml Output Total 20 ml Balance 0 ml 980 ml 840 ml Results Result Diagram: 08/29/16 0444 08/29/16 0444 RAJWINDER FIELDS M.D. Aug 29, 2016 13:22
[2016-08-29 16:00] VITALS: BP 109/62; PULSE 51; RESP 18
[2016-08-29 19:15] VITALS: BP 120/76; RESP 18
[2016-08-30] MEDS: PIPER-TAZO 3.375 GM IV (PMX) 100 ML IVPB SCH ×2 (05:54→12:11)
[2016-08-30 08:02] VITALS: BP 103/60; RESP 15
[2016-08-30] MEDS ORDERED: HYDR-3498 PO (08:38)
--- NOTE | 2016-08-30 08:44 | PDOCDIS ---
Discharge Instructions DIAGNOSIS Discharge Diagnosis Cholecystitis CONDITION Patient Condition: Good HOME CARE INSTRUCTIONS: Diet Instructions: Low Fat /Cholesterol ACTIVITY: Activity Restrictions: Slowly Increase Activity FOLLOW UP/APPOINTMENTS Follow-up Plan 1. Follow-up with Dr. Prince in 7-10 days 2. Follow-up with your PCP in 1-2 weeks SCHOOL/WORK RELEASE May return to School/Work with: No Restrictions CHERELLE KOENIG MD Aug 30, 2016 08:44
[2016-08-30] MEDS: FAMOTIDINE 20 MG INJ IV SCH (09:07)
[2016-08-30] MEDS: ENOXAPARIN 40 MG/0.4 ML SYG SC SCH (09:08)
[2016-08-30] MEDS: HYDROCODONE/APAP (5/325) TAB PO PRN ×2 (09:14→13:08)
--- NOTE | 2016-08-30 09:39 | PN ---
Date/Time of Note Date/Time of Note DATE: 08/30/16 TIME: 09:37 Assessment/Plan Lines/Catheters IV Catheter Type (from Nrs): Peripheral IV Gonzalez in Place (from Nrs): No Assessment/Plan Assessment/Plan [facility] Progress Note Date of Service: 08/30/16 Today's Impression & Plan: Overall doing well post op without major issues. No major wound problems. Abd appears benign. Given newly diagnosed choledochal cyst, she will need to follow up with me and have a multidisciplinary discussion regarding care, with eventual bile duct resection and hepaticojejunostomy. Discussed with patient and her boyfriend and answered all questions. With above assessment, I've recommended the following for today: 1. Ok from surgical standpoint to d/c home 2. Outpatient follow up with me in a few weeks 3. D/c instructions: Please call [phone] if any of fever, nausea, vomiting, discharge from wound , wound redness, increase or sudden pain, blood in stool or vomit, or any other unusual signs or symptoms. Also, please call the same number in a few days to schedule an appointment for your follow up visit. Patient may remove dressings tomorrow. Showers OK starting tomorrow. No swimming , hot tub or bath for 2 weeks. No lifting more than 25 lbs for 8 weeks. Thank you again for your great care of this very pleasant patient and wonderful family. If there are any questions, please feel free to call me at [phone]. Disclaimer: Inadvertent spelling or grammatical errors are likely due to EHR/ dictation software use and do not reflect on the overall quality of patient care. Updated Clinical Summary: Very pleasant and otherwise healthy 30-year-old young lady with only comorbidity of BMI 28.7, who presented to the emergency department at [facility] and was admitted on 08/28/2016 with cholelithiasis and perhaps early cholecystitis and choledocholithiasis. S/p an otherwise uncomplicated but somewhat difficult laparoscopic cholecystectomy at [facility] on with findings of acute on chronic cholecystitis with gallbladder hydrops. Comorbidities: 1. Acute on chronic cholecystitis with gallbladder hydrops 2. Choledocholithiasis, status post ERCP at [facility] 2016 with discovery of prior common bile duct stent of unknown age 3. 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 BMI 28.7 5. Known cholelithiasis since 06/24/2016 (visit to the [facility] emergency department, seen on ultrasound of right upper quadrant) 6. S/p an otherwise uncomplicated but somewhat difficult laparoscopic cholecystectomy at [facility] on 08/28/16 with findings of acute on chronic cholecystitis with gallbladder hydrops. Subjective: No major events or complaints; no major abd pain and under control with medications; no n/v/d; no sob or cp; + flatus; + BM; + activity Objective: Vitals: See below Exam: GENERAL: On exam, the patient was laying in bed and appeared to be comfortable and in no acute distress. ABDOMEN: Soft, nontender and nondistended. Incision dressings d/c'd and incisions are clean, dry and intact without any evidence of obvious erythema, edema, discharge, or hernia. There are no peritoneal signs or guarding. SKIN: Skin appears to be pink and feels warm to touch. NEUROLOGIC: Patient is awake, alert, and follows commands appropriately. Exam/Review of Systems Vital Signs Vitals Vital Signs Date Time Temp Pulse Resp B/P Pulse Ox O2 Delivery O2 Flow Rate FiO2 08/30/16 08:02 98.3 52 15 103/60 100 08/29/16 16:00 Room Air 08/28/16 19:42 2.0 Intake and Output 08/29/16 08/29/16 08/30/16 15:00 23:00 07:00 Intake Total 600 ml 1340 ml 200 ml Balance 600 ml 1340 ml 200 ml Results Result Diagram: 08/29/16 0444 08/29/16 0444 RAJWINDER FIELDS M.D. Aug 30, 2016 09:39
[2016-08-30] MEDS: D5W-0.45 NACL + KCL 20 MEQ 1,000 ML IV SCH (09:54)
--- NOTE | 2016-09-01 13:28 | HP ---
HISTORY AND PHYSICAL DATE OF ADMISSION: 08/27/2016 CHIEF COMPLAINT: Abdominal pain. HISTORY OF PRESENT ILLNESS: The patient presented to the emergency room at [facility] with a one day history of right upper quadrant abdominal pain with associated nausea, vomiting, and inability tolerate p.o. She states that she has had episodes of pain like this before, but that this is worse. She denies any associated fevers, chills, nausea or vomiting. PAST MEDICAL HISTORY: Nil. OUTPATIENT MEDICATIONS: Nil. SOCIAL HISTORY: The patient lives at home in [place] with her two children. Independent of activities of daily living. Denies tobacco, alcohol, or illicit drug use. FAMILY HISTORY: Noncontributory. REVIEW OF SYSTEMS: Review of systems reviewed and found not to be revealing. PHYSICAL EXAMINATION: VITAL SIGNS: Blood pressure 106/57, pulse rate 83, respirations 18, temperature is 99. GENERAL: A pleasant woman in no acute distress. Alert and oriented times 3. HEENT: Normocephalic, atraumatic without sclera icterus or perioral cyanosis. Mucous membranes are moist. NECK: Soft and supple without masses. No evidence of jugular venous distention or carotid bruits. CHEST: Clear to auscultation and percussion bilaterally. HEART: Regular rate and rhythm. S1 and S2, no added sounds. ABDOMEN: Soft. Tender in the right upper quadrant. No palpable hepatosplenomegaly. EXTREMITIES: Without clubbing, cyanosis, or edema. SKIN: Without rashes. NEUROLOGIC: Grossly intact. LABORATORY STUDIES: Hemoglobin 10.3 g, white count 8600, platelets 249,000. INR is 1.0. Sodium 142, potassium 3.3, chloride 104, bicarbonate 21, BUN 9, creatinine 0.55, glucose 107. Liver function tests remarkable for an AST 99, ALT 95, total bilirubin 0.3, alkaline phosphatase 117. UA shows trace hematuria. Right upper quadrant ultrasound reveals gallstones and sludge within the gallbladder wall with gallbladder thickening, common bile duct is dilated and contains multiple stones. ASSESSMENT AND PLAN: 1. Gastrointestinal: Gallstone disease. Will plan to proceed with ERCP, sphincterotomy, and stone extraction followed by laparoscopic cholecystectomy. Dr. Hoskins and Dr. Gutierrez have been consulted and I appreciate their assistance. 2. Prophylaxis with ISHMAEL'S and SCDs. Dictated By: Rodri Cui MD /del/simran /Document#: [id number] Conf#:[id number] DID#: [id number]
== END 2016-08-30 13:20 | disposition home or self-care (01) | DRG 418 ==
LOC: FTE 19:58 → MS1 23:49
PROVIDERS: ADMIT Internal Medicine; ATTEND Internal Medicine
PROC: 0FPB8DZ Removal of Intraluminal Device from Hepatobiliary Duct, Via Natural or Artificial Opening Endoscopic (ICD-10-PCS; 2016-08-28)
PROC: 0FC98ZZ Extirpation of Matter from Common Bile Duct, Via Natural or Artificial Opening Endoscopic (ICD-10-PCS; 2016-08-28)
PROC: 0F798DZ Dilation of Common Bile Duct with Intraluminal Device, Via Natural or Artificial Opening Endoscopic (ICD-10-PCS; 2016-08-28)
PROC: BF10YZZ Fluoroscopy of Bile Ducts using Other Contrast (ICD-10-PCS; 2016-08-28)
PROC: 0FT44ZZ Resection of Gallbladder, Percutaneous Endoscopic Approach (ICD-10-PCS; principal; 2016-08-28 14:00)
DX: K80.66 Calculus of gallbladder and bile duct with acute and chronic cholecystitis without obstruction (principal); K82.1 Hydrops of gallbladder
CPT/HCPCS: 36415; 74330; 76705; 80048; 80053; 80076; 81001; 83605; 83690; 83735; 83880; 84100; 85025; 85610; 85730; 87040; 87086; 88304; 96374; 96375; C2617; J0131; J1100; J1650; J1885; J2250; J2270; J2405; J2543; J2710; J2765; J3010; J3480; J7030; J7040; J7042; Q9967

== ENCOUNTER 2016-09-10 14:52 | Outpatient (CLI) | payer OTHER ==
[~2016-09-10] VITALS: Ht 154.9 cm; Wt 69.5 kg
[~2016-09-10 14:52] MED LIST changes: -FAMO-96 PO; +HYDR-3498 PO; -HYDR-906 PO; -ONDA4TAB8 PO
[2016-09-10 14:58] VITALS: BP 108/62; PULSE 72; RESP 16; Ht 154.9 cm; Wt 69.5 kg
--- NOTE | 2016-09-10 16:39 | PN ---
Date/Time of Note Date/Time of Note DATE: 09/10/16 TIME: 16:35 Assessment/Plan Assessment/Plan Assessment/Plan [facility] Progress Note Date of Service: 09/10/16 Today's Impression & Plan: Overall doing well post op without major issues. No major wound problems. Abd appears benign. Discussed possible diagnosis of choledochal cyst and reviewed images. Will need further imaging and possible CBD resection. Discussed with patient (no family present during my discussion with the patient) and answered all questions. With above assessment, I've recommended the following for today: 1. MRCP early Oct 2016 to allow sufficient time for decompression of CBD if the dilation was from obstruction related to stone disease 2. F/u with us after above Thank you again for your great care of this very pleasant patient and wonderful family. If there are any questions, please feel free to call me at [phone]. Disclaimer: Inadvertent spelling or grammatical errors are likely due to EHR/ dictation software use and do not reflect on the overall quality of patient care. Updated Clinical Summary: Very pleasant and otherwise healthy 30-year-old young lady with only comorbidity of BMI 28.7, who [place] [facility] [place] 08[place]28/2016 with cholelithiasis and perhaps early cholecystitis and choledocholithiasis. S/p an otherwise uncomplicated but somewhat difficult laparoscopic cholecystectomy at [facility] on with findings of acute on chronic cholecystitis with gallbladder hydrops. D/ c home 08/30/16. Comorbidities: 1. Acute on chronic cholecystitis with gallbladder hydrops 2. Choledocholithiasis, [place] [facility] [place] discovery of prior common bile duct stent of unknown age 3. 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 BMI 28.7 5. Known cholelithiasis since 06/24/2016 (visit to the [facility] emergency department, seen on ultrasound of right upper quadrant) 6. S/p an otherwise uncomplicated but somewhat difficult laparoscopic cholecystectomy at [facility] on 08/28/16 with findings of acute on chronic cholecystitis with gallbladder hydrops. Subjective: No major events or complaints since d/c home; no major abd pain and no longer on pain medications; no n/v/d; no sob or cp; + flatus; + BM; + activity Objective: Vitals: See below Exam: GENERAL: On exam, the patient was sitting on a chair and appeared to be comfortable and in no acute distress. ABDOMEN: Soft, nontender and nondistended. Incisions are clean, dry and intact without any evidence of obvious erythema, edema, discharge, or hernia. There are no peritoneal signs or guarding. SKIN: Skin appears to be pink and feels warm to touch. NEUROLOGIC: Patient is awake, alert, and follows commands appropriately. Exam/Review of Systems Vital Signs Vitals Vital Signs Date Time Temp Pulse Resp B/P Pulse Ox O2 Delivery O2 Flow Rate FiO2 09/10/16 14:58 98.2 72 16 108/62 97 Room Air RAJWINDER FIELDS M.D. Sep 10, 2016 16:39
== END 2016-09-10 16:11 | disposition home or self-care (01) ==
LOC: HPC 14:52
PROVIDERS: ATTEND Transplant Surgery
DX: K80.42 Calculus of bile duct with acute cholecystitis without obstruction (principal)
CPT/HCPCS: G0463